=== PATIENT | male | born 1995 | race African-American/Black ===

== ENCOUNTER 2020-11-06 12:01 | Emergency (ER) | payer OTHER ==
[2020-11-06 12:06] VITALS: BP 133/88; PULSE 70; TEMP 97.9; BMI 25.8
[2020-11-06] MEDS ORDERED: AZITHROMYCIN 500 MG TABLET PO ONE (12:33)
[2020-11-06 12:57] LABS: EPI CELLS 1 /uL (0-25.1); HYALINE CASTS 6 /uL (0-3.1); URINE APPEARANCE CLEAR; URINE BACTERIA 242 /uL (0-1359); URINE BILIRUBIN NEGATIVE (NEGATIVE); URINE COLOR YELLOW; URINE GLUCOSE (UA) NEGATIVE (NEGATIVE); URINE KETONE NEGATIVE (NEGATIVE); URINE LEUK ESTERASE 2+ (NEGATIVE); URINE NITRITE NEGATIVE (NEGATIVE); URINE PROTEIN NEGATIVE (NEGATIVE); URINE RBC 15 /uL (0-23.9); URINE UROBILINOGEN 0.2 mg/dL (0.2-1.0); URINE WBC 887 /uL (0-25.8)
[2020-11-06] MEDS ORDERED: AZITHROMYCIN 250 MG TABLET ONE (13:07)
== END 2020-11-06 13:29 | disposition home or self-care (01) ==
LOC: JERFT 12:01
DX: N48.89 Other specified disorders of penis (principal)
CPT/HCPCS: 36415; 81003; 87086; 87491; 87591; 99284-25

== ENCOUNTER 2022-02-23 09:24 | Emergency (ER) | payer OTHER ==
[2022-02-23 09:34] VITALS: BP 135/78; PULSE 59; TEMP 98.1; BMI 25.8
[2022-02-23 10:59] LABS: EPI CELLS 25 /uL (0-25.1); HYALINE CASTS 2 /uL (0-3.1); PH,URINE 6.5 (5.0-8.0); URINE APPEARANCE CLEAR; URINE BACTERIA 19 /uL (0-1359); URINE BILIRUBIN NEGATIVE (NEGATIVE); URINE COLOR YELLOW; URINE GLUCOSE (UA) NEGATIVE (NEGATIVE); URINE KETONE NEGATIVE (NEGATIVE); URINE LEUK ESTERASE 1+ (NEGATIVE); URINE NITRITE NEGATIVE (NEGATIVE); URINE PROTEIN NEGATIVE (NEGATIVE); URINE RBC 4 /uL (0-23.9); URINE WBC 136 /uL (0-25.8)
== END 2022-02-23 10:39 | disposition home or self-care (01) ==
LOC: JERFT 09:24 → JER 09:24 → JERFT 10:39
DX: Z20.2 Contact with and (suspected) exposure to infections with a predominantly sexual mode of transmission (principal)
CPT/HCPCS: 36415; 81003; 87086; 87491; 87591; 99284-25

== ENCOUNTER 2023-05-16 13:53 | Emergency (ER) | payer OTHER ==
[2023-05-16 13:58] VITALS: BP 138/88; PULSE 77; RESP 18; TEMP 98.4; BMI 24.0
[2023-05-16 14:35] LABS: PH,URINE 8.5 (5.0-8.0); URINE APPEARANCE TURBID; URINE BILIRUBIN NEGATIVE (NEGATIVE); URINE COLOR YELLOW; URINE GLUCOSE (UA) NEGATIVE (NEGATIVE); URINE KETONE TRACE (NEGATIVE); URINE LEUK ESTERASE NEGATIVE (NEGATIVE); URINE NITRITE NEGATIVE (NEGATIVE); URINE PROTEIN NEGATIVE (NEGATIVE)
== END 2023-05-16 15:25 | disposition home or self-care (01) ==
LOC: JERFT 13:53
DX: N48.89 Other specified disorders of penis (principal)
CPT/HCPCS: 36415; 81003; 86780; 87086; 87255; 87389; 87491; 87529; 87591; 99283-25

== ENCOUNTER 2023-09-10 10:55 | Emergency (ER) | payer OTHER ==
[2023-09-10 11:29] VITALS: BP 111/83; PULSE 63; RESP 18; TEMP 98.9; BMI 24.4
[2023-09-10 13:18] LABS: SYPHILIS W/ RPR CONF NON-REACTIVE (NONREACTIVE)
[2023-09-10 13:47] LABS: HIV INTERPRETATION NEGATIVE (NEGATIVE)
== END 2023-09-10 12:18 | disposition home or self-care (01) ==
LOC: JERFT 10:55
DX: Z11.3 Encounter for screening for infections with a predominantly sexual mode of transmission (principal)
CPT/HCPCS: 36415; 86695; 86696; 86780; 86790; 87389; 87491; 87591; 99283-25